=== PATIENT | male | born 1940 | race Caucasian/White ===

== ENCOUNTER 2017-06-03 11:13 | Emergency (ER) | payer MEDICARE ==
[~2017-06-03] VITALS: Ht 175.3 cm; Wt 84.0 kg
[~2017-06-03 11:13] MED LIST: AMLO5TAB PO; LEVO25TA2 PO; QUIN10TA16 PO; WARF4TAB9
[2017-06-03 11:42] LABS: BASOPHILS % (AUTO) 0.6 % (0-1); EOSINOPHILS # (AUTO) 0.1 X10'3 (0-0.9); EOSINOPHILS % (AUTO) 1.8 % (0-6); HEMATOCRIT 45.8 % (42.0-52.0); HEMOGLOBIN 15.7 g/dl (14.0-17.9); LYMPHOCYTES # (AUTO) 1.5 X10'3 (1.1-4.8); LYMPHOCYTES % (AUTO) 20.4 % (21-51); MEAN CORPUSCULAR HEMOGLOBIN 30.9 PG (27.0-31.0); MEAN CORPUSCULAR HGB CONC 34.2 % (33.0-36.5); MEAN CORPUSCULAR VOLUME 90.3 FL (78-98); MEAN PLATELET VOLUME 6.9 FL (7.4-10.4); MONOCYTES # (AUTO) 0.6 X10'3 (0-0.9); MONOCYTES % (AUTO) 8.3 % (2-12); NEUTROPHILS # (AUTO) 5.1 X10'3 (1.8-7.7); NEUTROPHILS % (AUTO) 68.9 % (42-75); PLATELET COUNT 205 X10'3 (140-440); RED BLOOD COUNT 5.07 X10'6 (4.70-6.10); RED CELL DISTRIBUTION WIDTH 13.9 % (11.5-14.5); WHITE BLOOD COUNT 7.4 X10'3 (4.5-11.0)
[2017-06-03 11:52] LABS: INR 2.1 INR; PARTIAL THROMBOPLASTIN TIME 33 SECONDS (22-32)
[2017-06-03 12:01] LABS: ALANINE AMINOTRANSFERASE 34 U/L (12-78); ALBUMIN 3.9 G/DL (3.4-5.0); ALKALINE PHOSPHATASE 74 IU/L (46-116); ANION GAP 10 (8-16); ASPARTATE AMINO TRANSFERASE 27 U/L (10-37); BILIRUBIN,TOTAL 0.7 MG/DL (0.1-1.0); BLOOD UREA NITROGEN 18 MG/DL (7-18); BUN/CREATININE RATIO 14.4 (5.4-32.0); CALCIUM 8.9 MG/DL (8.5-10.1); CHLORIDE 107 MMOL/L (99-107); CREATININE 1.25 MG/DL (0.60-1.10); GLUCOSE 137 MG/DL (70-104); POTASSIUM 4.2 MMOL/L (3.5-5.1); SODIUM 142 MMOL/L (135-145); TOTAL CARBON DIOXIDE 25.4 MMOL/L (24-32); TOTAL PROTEIN 7.9 G/DL (6.4-8.2); eGFR 56 ML/MIN
[2017-06-03] MEDS ORDERED: HYDR-565 PO (13:13)
[2017-06-03] MEDS ORDERED: TETanus/Pertussis (Acell)/Diphther VAC/PF (Tdap-Adult) 0.5ml syringe IM ONE (13:20)
[2017-06-03 14:08] VITALS: BP 154/96
== END 2017-06-03 14:00 | disposition home or self-care (01) ==
LOC: ER 11:14
DX: S41.111A Laceration without foreign body of right upper arm, initial encounter (principal); S80.01XA Contusion of right knee, initial encounter; S09.90XA Unspecified injury of head, initial encounter; I10 Essential (primary) hypertension; Z86.73 Personal history of transient ischemic attack (TIA), and cerebral infarction without residual deficits; W01.0XXA Fall on same level from slipping, tripping and stumbling without subsequent striking against object, initial encounter; Y93.89 Activity, other specified; Y92.89 Other specified places as the place of occurrence of the external cause; Y99.8 Other external cause status
CPT/HCPCS: 12002; 36415; 70450; 71045; 73564; 80053; 84484; 85025; 85610; 85730; 90471; 90715; 93005; 99285

== ENCOUNTER 2017-11-18 09:33 | Emergency (ER) | payer MEDICARE ==
[~2017-11-18] VITALS: Ht 175.3 cm; Wt 79.0 kg
[2017-11-18 09:36] VITALS: BP 123/74
[2017-11-18] MEDS ORDERED: ketorolac trometh inj. 60 MG/2 ML VIAL IM ONE (09:50)
[2017-11-18] MEDS ORDERED: HYDROcodone/acetaminophen 5mg/325mg tablet PO ONE (09:50)
[2017-11-18] MEDS ORDERED: diazepam 5mg tablet PO ONE (09:50)
[2017-11-18] MEDS ORDERED: CYCL-1 PO (10:54)
== END 2017-11-18 11:52 | disposition home or self-care (01) ==
LOC: ER 09:33
DX: S39.012A Strain of muscle, fascia and tendon of lower back, initial encounter (principal); M62.830 Muscle spasm of back; M48.061 Spinal stenosis, lumbar region without neurogenic claudication; I10 Essential (primary) hypertension; Z86.73 Personal history of transient ischemic attack (TIA), and cerebral infarction without residual deficits; Z79.01 Long term (current) use of anticoagulants; Z79.899 Other long term (current) drug therapy; X58.XXXA Exposure to other specified factors, initial encounter; Y93.89 Activity, other specified; Y92.89 Other specified places as the place of occurrence of the external cause; Y99.8 Other external cause status
CPT/HCPCS: 72100; 96372; 99284; J1885

== ENCOUNTER 2018-01-24 08:37 | Emergency (ER) | payer MEDICARE ==
[~2018-01-24] VITALS: Ht 175.3 cm; Wt 82.2 kg
[~2018-01-24 08:37] MED LIST changes: +CYCL-1 PO
[2018-01-24] MEDS ORDERED: LIDOcaine 1.5% w/epinephrine 1:200,000 5ml ampul IJ ONE (09:00)
[2018-01-24 09:02] VITALS: BP 134/82
[2018-01-24] MEDS ORDERED: SULF1TAB49 PO (09:04)
[2018-01-24] MEDS ORDERED: TRAM50TA2 PO (09:04)
== END 2018-01-24 09:44 | disposition home or self-care (01) ==
LOC: ER 08:38
DX: L72.3 Sebaceous cyst (principal); I10 Essential (primary) hypertension; Z86.73 Personal history of transient ischemic attack (TIA), and cerebral infarction without residual deficits; Z79.01 Long term (current) use of anticoagulants; Z79.899 Other long term (current) drug therapy
CPT/HCPCS: 10060; 87070; 99284

== ENCOUNTER 2018-01-26 07:16 | Emergency (ER) | payer MEDICARE ==
[~2018-01-26] VITALS: Ht 175.3 cm; Wt 80.9 kg
[~2018-01-26 07:16] MED LIST changes: +SULF1TAB49 PO; +TRAM50TA2 PO
[2018-01-26 07:19] VITALS: BP 127/78
== END 2018-01-26 07:53 | disposition home or self-care (01) ==
LOC: ER 07:16
DX: Z48.01 Encounter for change or removal of surgical wound dressing (principal); I10 Essential (primary) hypertension; Z86.73 Personal history of transient ischemic attack (TIA), and cerebral infarction without residual deficits; Z79.2 Long term (current) use of antibiotics; Z79.01 Long term (current) use of anticoagulants; Z79.899 Other long term (current) drug therapy
CPT/HCPCS: 99282

== ENCOUNTER → 2020-11-22 | Emergency (ER) | payer MEDICARE ==
[~2020-11-22] VITALS: Ht 175.3 cm; Wt 86.7 kg
[~2020-11-22] MED LIST changes: -SULF1TAB49 PO; -TRAM50TA2 PO
[2020-11-22 11:15] VITALS: BP 210/100
[2020-11-22 11:41] LABS: BASOPHILS % (AUTO) 0.7 % (0-1); EOSINOPHILS # (AUTO) 0.1 X10'3 (0-0.9); EOSINOPHILS % (AUTO) 2.3 % (0-6); HEMOGLOBIN 15.9 g/dl (14.0-17.9); LYMPHOCYTES # (AUTO) 1.6 X10'3 (1.1-4.8); LYMPHOCYTES % (AUTO) 27.5 % (21-51); MEAN CORPUSCULAR HEMOGLOBIN 30.5 PG (27.0-31.0); MEAN CORPUSCULAR HGB CONC 33.1 g/dL (33.0-36.5); MEAN CORPUSCULAR VOLUME 92.2 FL (78-98); MEAN PLATELET VOLUME 6.9 FL (7.4-10.4); MONOCYTES # (AUTO) 0.6 X10'3 (0-0.9); MONOCYTES % (AUTO) 10.3 % (2-12); NEUTROPHILS # (AUTO) 3.4 X10'3 (1.8-7.7); NEUTROPHILS % (AUTO) 59.2 % (42-75); PLATELET COUNT 197 X10'3 (140-440); RED CELL DISTRIBUTION WIDTH 14.3 % (11.5-14.5); WHITE BLOOD COUNT 5.8 X10'3 (4.5-11.0)
[2020-11-22 11:54] LABS: PARTIAL THROMBOPLASTIN TIME 43 SECONDS (22-32)
[2020-11-22 12:02] LABS: ALANINE AMINOTRANSFERASE 54 U/L (12-78); ALBUMIN 4.1 G/DL (3.4-5.0); ALKALINE PHOSPHATASE 86 IU/L (46-116); ANION GAP 8 (8-16); ASPARTATE AMINO TRANSFERASE 36 U/L (10-37); BILIRUBIN,TOTAL 0.5 MG/DL (0.1-1.0); BLOOD UREA NITROGEN 16 MG/DL (7-18); BUN/CREATININE RATIO 14.7 (5.4-32.0); CHLORIDE 107 MMOL/L (99-107); CREATININE 1.09 MG/DL (0.60-1.10); GLUCOSE 105 MG/DL (70-104); POTASSIUM 4.5 MMOL/L (3.5-5.1); SODIUM 144 MMOL/L (135-145); TOTAL PROTEIN 8.1 G/DL (6.4-8.2); eGFR 65 ML/MIN
[2020-11-22 12:08] LABS: MAGNESIUM 2.3 MG/DL (1.5-2.4)
== END | disposition left against medical advice (07) ==
LOC: ER 10:53
DX: I10 Essential (primary) hypertension (principal); Z86.73 Personal history of transient ischemic attack (TIA), and cerebral infarction without residual deficits; Z72.89 Other problems related to lifestyle; Z79.899 Other long term (current) drug therapy
CPT/HCPCS: 36415; 80053; 83735; 83880; 84484; 85025; 85610; 85730; 93005; 99284

== ENCOUNTER 2021-03-05 14:34 | Outpatient (CLI) | payer MEDICARE | END 2021-03-05 23:59 | disposition home or self-care (01) | LOC: CARD DIAG 14:34 | PROVIDERS: ATTEND Internal Medicine Interventional Cardiology | DX: I34.0 Nonrheumatic mitral (valve) insufficiency (principal); I10 Essential (primary) hypertension; E78.5 Hyperlipidemia, unspecified | CPT/HCPCS: 93308 ==

== ENCOUNTER 2022-03-29 09:40 | Day surgery (SDC) | payer MEDICARE ==
[~2022-03-29] VITALS: Ht 175.3 cm; Wt 85.9 kg
[~2022-03-29 09:40] MED LIST changes: -QUIN10TA16 PO; +QUIN10TA35 PO
[2022-03-29 09:55] VITALS: BP 178/103
[2022-03-29] MEDS ORDERED: FENTANYL CITRATE/PF 50 MCG/1 ML VIAL ONE (10:03)
[2022-03-29] MEDS ORDERED: MIDAZolam 1 MG/ML 5ML VIAL ONE (10:03)
[2022-03-29] MEDS ORDERED: LIDOcaine Viscous 15ml cup ONE (10:03)
[2022-03-29] MEDS ORDERED: FLO0.4C PO (10:19)
[2022-03-29] MEDS ORDERED: QUIN20TA39 PO (10:19)
[2022-03-29] MEDS ORDERED: VALP250S3 PO (10:19)
[2022-03-29] MEDS ORDERED: ISOS30TA84 PO (10:19)
[2022-03-29] MEDS ORDERED: PANT-47 PO (10:19)
[2022-03-29] MEDS ORDERED: ATOR40TA PO (10:19)
[2022-03-29] MEDS ORDERED: METF-900 PO (10:19)
[2022-03-29 11:20] VITALS: BP 145/87
[2022-03-29 11:30] VITALS: BP 144/70
[2022-03-29 11:40] VITALS: BP 141/66
[2022-03-29 11:50] VITALS: BP 146/71
== END 2022-03-29 12:00 | disposition home or self-care (01) ==
LOC: GI LAB 09:40
PROVIDERS: ATTEND Internal Medicine Gastroenterology
DX: K44.9 Diaphragmatic hernia without obstruction or gangrene (principal); K29.50 Unspecified chronic gastritis without bleeding
CPT/HCPCS: 43239; G0500; J2250; J3010; J7030; Z7512; 88305; 88342; 99152; A4620

== ENCOUNTER → 2023-03-29 | Emergency (ER) | payer MEDICARE ==
[~2023-03-29] VITALS: Ht 175.3 cm; Wt 88.5 kg
[~2023-03-29] MED LIST changes: -AMLO5TAB PO; +ATOR40TA PO; +CEPH-585 PO; -CYCL-1 PO; +FLO0.4C PO; +ISOS30TA84 PO; +METF-900 PO; +NAPR-56 PO; +PANT-47 PO; +QUIN20TA39 PO; +SULF1TAB49 PO; +VALP250S3 PO; -WARF4TAB9
[2023-03-29 09:43] VITALS: TEMP 98.6
[2023-03-29 11:26] VITALS: BP 161/91; PULSE 60; RESP 18; O2SAT 94
== END | disposition home or self-care (01) ==
LOC: ER 09:39
DX: L02.212 Cutaneous abscess of back [any part, except buttock and flank] (principal); I10 Essential (primary) hypertension; E03.9 Hypothyroidism, unspecified; Z79.899 Other long term (current) drug therapy
CPT/HCPCS: 99283